=== PATIENT | female | born 1955 | race Caucasian/White ===

== ENCOUNTER 2020-10-13 15:38 | Emergency (ER) | payer MEDICARE ==
[~2020-10-13] VITALS: Ht 177.8 cm; Wt 97.5 kg
[2020-10-13] MEDS ORDERED: SODIUM CHLORIDE 0.9% 1000ML 1,000 ML IV STA (16:10)
[2020-10-13 16:25] LABS: BASOPHILS % 0.2 % (0.0-1.0); EOSINOPHILS % 0.2 % (0.0-6.0); HEMATOCRIT 37.7 % (34.2-44.1); HEMOGLOBIN 12.4 g/dL (12.0-16.0); LYMPHOCYTES # (AUTO) 0.7 (1.0-3.2); MEAN CORPUSCULAR HEMOGLOBIN 29.8 pg (28-32); MEAN CORPUSCULAR HGB CONC 32.9 g/dL (31-35); MEAN CORPUSCULAR VOLUME 90.6 fL (81-99); MONOCYTES # (AUTO) 0.4 (0.2-0.8); MONOCYTES % 8.6 % (4.4-11.3); NEUTROPHILS # (AUTO) 3.6 (2.1-6.9); NEUTROPHILS % 76.8 % (38.7-80.0); PLATELET COUNT 174 x10e3/uL (140-360); RED BLOOD COUNT 4.16 x10e6/uL (3.6-5.1); RED CELL DISTRIBUTION WIDTH 13.2 % (11.7-14.4)
[2020-10-13 16:34] LABS: INR 0.92; PARTIAL THROMBOPLASTIN TIME 29.3 seconds (23.8-35.5); PROTHROMBIN TIME 12.9 seconds (11.9-14.5)
[2020-10-13 16:43] LABS: ALANINE AMINOTRANSFERASE 24 IU/L (0-55); ALBUMIN 3.8 g/dL (3.5-5.0); ALBUMIN/GLOBULIN RATIO 1.2 (0.8-2.0); ALKALINE PHOSPHATASE 83 IU/L (40-150); ANION GAP 16.2 mmol/L (8-16); BLOOD UREA NITROGEN 23 mg/dL (7-26); BUN/CREATININE RATIO 23 (6-25); CALCIUM 8.5 mg/dL (8.4-10.2); CARBON DIOXIDE 24 mmol/L (22-29); CHLORIDE 99 mmol/L (98-107); CREATINE KINASE 133 IU/L (29-168); CREATININE, SERUM 1.02 mg/dL (0.57-1.11); EST GLOMERULAR FILTRATION RATE 54 ML/MIN (60-); GLUCOSE 110 mg/dL (74-118); MAGNESIUM 1.6 MG/DL (1.3-2.1); POTASSIUM 4.2 mmol/L (3.5-5.1); SODIUM 135 mmol/L (136-145)
[2020-10-13] MEDS ORDERED: ACETAMINOPHEN 325 MG TAB PO ONE (17:00)
[2020-10-13] MEDS ORDERED: ONDANSETRON HCL INJ 2MG/ML 2ML 2 MG/ML VIAL IV ONE (17:00)
[2020-10-13] MEDS ORDERED: PANTOPRAZOLE 40 MG 10ML VIAL IV ONE (17:00)
[2020-10-13] MEDS ORDERED: IBUPROFEN 800MG/ 200ML 800 MG in SODIUM CHLORIDE 0.9% 250ML 250 ML IV STA (18:07)
== END 2020-10-13 19:26 | disposition home or self-care (01) ==
LOC: ER 15:43
DX: U07.1 COVID-19 (principal); R50.9 Fever, unspecified; R05 Cough; R06.02 Shortness of breath; R19.7 Diarrhea, unspecified; R51.9 Headache, unspecified; I10 Essential (primary) hypertension; F41.9 Anxiety disorder, unspecified; F32.9 Major depressive disorder, single episode, unspecified
CPT/HCPCS: 36415; 71045; 80053; 82550; 82553; 83735; 84484; 85025; 85610; 85730; 93005; 99284; C9113; J2405; J7030; J7050

== ENCOUNTER 2024-09-30 20:39 | Emergency (ER) | payer MEDICARE ==
[~2024-09-30] VITALS: Ht 177.8 cm; Wt 97.5 kg
[2024-09-30 20:40] VITALS: PULSE 78; RESP 18; TEMP 98.7
[2024-09-30 21:54] LABS: CORONAVIRUS COVID-19 AG NEGATIVE (NEGATIVE); INFLUENZA A AG NEGATIVE (NEGATIVE); INFLUENZA B AG NEGATIVE (NEGATIVE)
[2024-09-30] MEDS ORDERED: AZITHROMYCIN250 MG PO (23:04)
[2024-09-30] MEDS ORDERED: MEDROL4 M2 PEG (23:04)
[2024-09-30 23:10] VITALS: BP 165/84; PULSE 74; RESP 18; TEMP 98.3; O2SAT 99
== END 2024-09-30 23:10 | disposition home or self-care (01) ==
LOC: ER 21:24
DX: R05.9 Cough, unspecified (principal); J40 Bronchitis, not specified as acute or chronic; I10 Essential (primary) hypertension; F41.9 Anxiety disorder, unspecified; F32.A Depression, unspecified
CPT/HCPCS: 71046; 99283